=== PATIENT | male | born 1975 | race Caucasian/White ===

== ENCOUNTER 2018-12-30 21:59 | Emergency (ER) | payer OTHER ==
--- NOTE | 2018-12-30 23:02 | XR ---
EXAM: XR Chest, 2 Views CLINICAL HISTORY: ITS.REASON XR Reason: cough TECHNIQUE: Frontal and lateral views of the chest. COMPARISON: 03/01/14 x-ray FINDINGS: Lungs: No consolidation or mass. Pleural space: No effusion. Heart: No cardiomegaly. Mediastinum: Unremarkable. Bones/joints: No acute findings. IMPRESSION: No acute cardiopulmonary process.
[2018-12-30 23:07] VITALS: BP 121/76; RESP 18; TEMP 99.2
[2018-12-31] MEDS ORDERED: methylPREDNISolone SOD SUCCI 125 MG/2 ML VIAL IM ONE (00:18)
[2018-12-31] MEDS ORDERED: IPRATROPIUM-ALBUTEROL 3 ML NEB INHALATION STA (00:18)
[2018-12-31] MEDS ORDERED: PROMETHAZ-COD 6.25-10 MG/5 ML 5 ML CUP PO STA (00:18)
[2018-12-31 00:41] VITALS: PULSE 82
--- NOTE | 2018-12-31 01:13 | ED ---
URI HPI - General Chief Complaint: Upper Respiratory Infection Stated Complaint: MAX Time Seen by Provider: 12/30/18 22:50 Source: patient Mode of arrival: ambulatory Limitations: no limitations - History of Present Illness Initial Comments: 43-year-old male patient presents to the emergency department today for evaluation of cough. Patient states his been sick for the last 1-2 months with this. Patient states that he is coughing up clear to yellow sputum. Patient states that he was started on azithromycin and nasal decongestants yesterday but is not feeling any better. Patient states at times he does get short of breath. Denies any wheezing. Denies any fever or chills with this. Patient denies any history of smoking. Denies any hemoptysis. Denies any calf pain or swelling. Denies any recent long travel or history of DVT. Patient denies any recent rash, shortness breath, chest pain, abdominal pain, nausea, vomiting, diarrhea, consti pation, back pain, numbness, tingling, dizziness, weakness, hematuria, dysuria, urinary urgency, urinary frequency, headache, visual changes, or any other complaints. - Related Data Home Medications Medication Instructions Recorded Confirmed Atorvastatin Calcium [Lipitor] 40 mg PO HS 03/01/14 12/02/16 Enalapril [Vasotec] 5 mg PO BID 03/01/14 12/02/16 Warfarin [Coumadin] 5 mg PO TUTHSA 03/01/14 12/02/16 Warfarin [Coumadin] 7.5 mg PO SUMOWEFR 03/01/14 12/02/16 Zolpidem [Ambien] 10 mg PO HS 03/01/14 12/02/16 amLODIPine BESYLATE [Norvasc] 5 mg PO DAILY 03/01/14 12/02/16 Butalb/APAP/Caff 50-325-40Mg 2 tab PO Q6H PRN 04/02/16 12/02/16 [Fioricet 50-325-40] HYDROcodone/APAP 7.5-325MG [[place] 1 tab PO Q4H PRN 04/02/16 12/02/16 7.5-325] Levothyroxine Sodium [Synthroid] 25 mcg PO DAILY 04/02/16 12/02/16 Pantoprazole [Protonix] 40 mg PO HS 04/02/16 12/02/16 Previous Rx's Medication Instructions Recorded Albuterol Sulfate [Proair Hfa] 1 - 2 puff INHALATION Q6HR PRN #1 12/31/18 inhaler Promethaz-Cod 6.25-10 mg/5 ml 5 ml PO Q4HR PRN 3 Days #90 ml 12/31/18 [Phenergan with Codeine] predniSONE 50 mg PO DAILY #5 tablet 12/31/18 Allergies Allergy/AdvReac Type Severity Reaction Status Date / Time codeine AdvReac Nausea & Verified 12/30/18 22:14 Vomiting & Diarrhea metoclopramide [From Reglan] AdvReac stomach Verified 12/30/18 22:14 swelling Review of Systems ROS Statement: Those systems with pertinent positive or pertinent negative responses have been documented in the HPI. ROS Other: All systems not noted in ROS Statement are negative. Past Medical History Past Medical History: CVA/TIA, Hyperlipidemia, Hypertension Additional Past Medical History / Comment(s): CVA/TIA X 9 ,HISTORY OF LUPUS ANTICOAGULANT, PT OCCASSIONALLY LOOSES HAND FUNCTION AND GETS LT SIDED WEAKNESS R/T TO PRIOR CVA. SEVERE SCROTAL PAIN WITH N/V ; MIGRAINES, History of Any Multi-Drug Resistant Organisms: None Reported Additional Past Surgical History / Comment(s): NASAL SURGERY-SEPTOPLASTY,ABE; Colonoscopy, Past Anesthesia/Blood Transfusion Reactions: No Reported Reaction Past Psychological History: No Psychological Hx Reported Smoking Status: Never smoker Past Alcohol Use History: Rare Past Drug Use History: None Reported - Past Family History Mother Family Medical History: CVA/TIA General Exam Limitations: no limitations General appearance: alert, in no apparent distress, other (This is a well- developed, well-nourished adult male patient in no acute distress. Vital signs upon presentation are temperature 100.6F, pulse 91, respirations 19, blood pressure 136/78, pulse ox 98% on room air.) Eye exam: Present: normal appearance, PERRL, EOMI. Absent: scleral icterus, conjunctival injection, periorbital swelling ENT exam: Present: normal exam, normal oropharynx, mucous membranes moist, TM's normal bilaterally Neck exam: Present: normal inspection. Absent: tenderness, meningismus, lymphadenopathy Respiratory exam: Present: normal lung sounds bilaterally. Absent: respiratory distress, wheezes, rales, rhonchi, stridor Cardiovascular Exam: Present: regular rate, normal rhythm, normal heart sounds. Absent: systolic murmur, diastolic murmur, rubs, gallop, clicks GI/Abdominal exam: Present: soft, normal bowel sounds. Absent: distended, tenderness, guarding, rebound, rigid Neurological exam: Present: alert, oriented X3, CN II-XII intact Psychiatric exam: Present: normal affect, normal mood Skin exam: Present: warm, dry, intact, normal color. Absent: rash Course Vital Signs 12/30/18 12/30/18 12/31/18 22:10 23:07 00:29 Temperature 100.6 F H 99.2 F Pulse Rate 91 76 78 Respiratory 19 18 18 Rate Blood Pressure 136/78 121/76 O2 Sat by Pulse 98 96 Oximetry 12/31/18 00:40 Temperature Pulse Rate 82 Respiratory 18 Rate Blood Pressure O2 Sat by Pulse Oximetry Medical Decision Making - Medical Decision Making 43-year-old male patient presents to the emergency department today for evaluation of cough that his been going on for the last 4-6 weeks. Physical examination reveals clear equal lung sounds. Oxygen saturation is satisfactory. He does have a low-grade temperature 100.6. Patient is taking azithromycin [id number] nasal decongestants currently. Symptoms are consistent with acute bronchitis. We will start prednisone and given a prescription for pro- air. He will also be given cough medication to take at night. He is instructed to follow-up with his primary care physician for recheck in 1-2 days. Return parameters were discussed in detail. He verbalizes understanding and agrees with this plan. - Lab Data Lab Results 12/30/18 Range/Units 22:13 Influenza Type A RNA Not Detected (Not Detectd) Influenza Type B (PCR) Not Detected (Not Detectd) - Radiology Data Radiology results: report reviewed, image reviewed Two-view x-ray of the chest is obtained. Report was reviewed in its entirety. Impression by Dr. Ashraf shows no acute cardiopulmonary process. Disposition Clinical Impression: Acute bronchitis Disposition: HOME SELF-CARE Condition: Good Instructions (If sedation given, give patient instructions): Acute Bronchitis (ED) Additional Instructions: Take medications as directed. Continue your antibiotic. Increase fluids. Rest. Follow up with the primary care physician for recheck in 1-2 days. Return to the emergency department for any new, worsening, or concerning symptoms. Prescriptions: Promethaz-Cod 6.25-10 mg/5 ml [Phenergan with Codeine] 5 ml PO Q4HR PRN 3 Days #90 ml PRN Reason: Cough predniSONE 50 mg PO DAILY #5 tablet Albuterol Sulfate [Proair Hfa] 1 - 2 puff INHALATION Q6HR PRN #1 inhaler PRN Reason: Shortness Of Breath Is patient prescribed a controlled substance at d/c from ED?: Yes When asked, does pt state using other controlled substances?: No If prescribed controlled substance>3 days was MAPS reviewed?: Prescribed <3 Days If opioid is for acute pain is fill amount 7 days or less?: Yes If Rx opioid, was Start Talking consent form obtained?: Yes Referrals: Dwight Wood MD [Primary Care Provider] - 1-2 days Time of Disposition: 01:12
== END 2018-12-31 01:39 | disposition home or self-care (01) ==
LOC: EC 21:59
DX: J20.9 Acute bronchitis, unspecified (principal); E78.5 Hyperlipidemia, unspecified; I10 Essential (primary) hypertension; D68.62 Lupus anticoagulant syndrome; Z88.5 Allergy status to narcotic agent; Z88.8 Allergy status to other drugs, medicaments and biological substances; Z79.01 Long term (current) use of anticoagulants; Z79.890 Hormone replacement therapy; Z79.899 Other long term (current) drug therapy; Z86.73 Personal history of transient ischemic attack (TIA), and cerebral infarction without residual deficits; Z98.890 Other specified postprocedural states
CPT/HCPCS: 94640; 87502; 71046; 99285; 96372; J2930

== ENCOUNTER 2020-12-24 16:16 | Emergency (ER) | payer OTHER ==
[2020-12-24 16:24] VITALS: TEMP 98
[2020-12-24] MEDS ORDERED: SODIUM CHLORIDE 0.9% 1,000 ML IV STA (16:47)
--- NOTE | 2020-12-24 16:56 | ED ---
Chest Pain HPI - General Chief Complaint: Chest Pain Stated Complaint: Chest Pain Time Seen by Provider: 12/24/20 16:36 Source: patient, RN notes reviewed Mode of arrival: ambulatory Limitations: no limitations - History of Present Illness Initial Comments: 45-year-old well-appearing white male, alert and oriented 4, presents to the emergency room with 4 days of chest pain with intermittent heart fluttering. Patient states occasionally feels the pain and tightness down his left arm. Patient denies nausea vomiting, fever, couigh or shortness of breath. Patient denies any sick contacts. Patient has history of CVA 7 in 2006, and CVA 2 in 2008. Patient has left-sided numbness from those previous strokes but no residual weakness. Patient also has a history of lupus and migraines. Patient denies any coronary artery disease. Patient states he takes Coumadin, blood pressure medications, and Fioricet for migraine headaches that he's had since his multiple strokes. Patient has family history of cardiac disease including his mother and sister. He has seen cardiology in the past Dr. Guido, but has not seen him quite some time, primary care doctor Dr. Wood. Patient denies any focal neurologic symptoms, states he has migraines and had 8 out of 10 headache today and did take his Fioricet which improved his headache to a 4 out of 10. Patient is concerned about cardiac problem with extensive family history mother and sister. MD Complaint: chest pain -: days(s) (4) Onset: during rest, during exertion, other (Pain started after moving, lifting boxes 4 days ago states for the past 2 days it's been continual tightness in his chest) Pain Location: left chest, right chest Pain Radiation: LURosa Maria Severity scale (1-10): 4 Quality: tightness Consistency: constant Improves With: nothing Worsens With: nothing Other Symptoms: palpitations (Feels fluttering in his chest intermittently) Treatments Prior to Arrival: other (Fioricet for headache; Coumadin) - Related Data On Oral Contraceptives: No Home Medications Medication Instructions Recorded Confirmed Atorvastatin Calcium [Lipitor] 40 mg PO HS 03/01/14 12/24/20 Enalapril [Vasotec] 5 mg PO BID 03/01/14 12/24/20 Warfarin [Coumadin] 5 mg PO TUTA@2100 03/01/14 12/24/20 Zolpidem [Ambien] 10 mg PO HS PRN 03/01/14 12/24/20 amLODIPine BESYLATE [Norvasc] 5 mg PO DAILY 03/01/14 12/24/20 Butalb/APAP/Caff 50-325-40Mg 1 tab PO TID PRN 04/02/16 12/24/20 [Fioricet 50-325-40] HYDROcodone/APAP 7.5-325MG [[place] 1 tab PO QID PRN 04/02/16 12/24/20 7.5-325] Levothyroxine Sodium [Synthroid] 25 mcg PO DAILY 04/02/16 12/24/20 Pantoprazole [Protonix] 40 mg PO BID 04/02/16 12/24/20 Cetirizine HCl 10 mg PO DAILY 12/24/20 12/24/20 Fluticasone Nasal [place] [Flonase 1 - 2 spr EA NOSTRIL BID PRN 12/24/20 12/24/20 Nasal Urs[place]] Sildenafil [Revatio] 20 - 40 mg PO DAILY PRN 12/24/20 12/24/20 Warfarin [Coumadin] 7.5 mg PO SUMOWEFR@2100 12/24/20 12/24/20 Allergies Allergy/AdvReac Type Severity Reaction Status Date / Time codeine AdvReac Nausea & Verified 12/24/20 16:20 Vomiting & Diarrhea metoclopramide [From Reglan] AdvReac stomach Verified 12/24/20 16:20 swelling Review of Systems ROS Statement: Those systems with pertinent positive or pertinent negative responses have been documented in the HPI. ROS Other: All systems not noted in ROS Statement are negative. EKG Findings - EKG Results: EKG: sinus rhythm (Ventricular rate of 60, OR interval 0.16, QRS of 0.10, TC 0.414), no acute changes (03/2014), not changed from: Past Medical History Past Medical History: CVA/TIA, Hyperlipidemia, Hypertension Additional Past Medical History / Comment(s): CVA/TIA X 9 ,HISTORY OF LUPUS ANTICOAGULANT, PT OCCASSIONALLY LOOSES HAND FUNCTION AND GETS LT SIDED WEAKNESS R/T TO PRIOR CVA. SEVERE SCROTAL PAIN WITH N/V ; MIGRAINES, History of Any Multi-Drug Resistant Organisms: None Reported Additional Past Surgical History / Comment(s): NASAL SURGERY-SEPTOPLASTY,ABE; Colonoscopy, Past Anesthesia/Blood Transfusion Reactions: No Reported Reaction Past Psychological History: No Psychological Hx Reported Smoking Status: Former smoker Past Alcohol Use History: None Reported Past Drug Use History: None Reported - Past Family History Mother Family Medical History: CVA/TIA General Exam Limitations: no limitations General appearance: alert, in no apparent distress Head exam: Present: atraumatic, normocephalic, normal inspection Eye exam: Present: normal appearance, PERRL, EOMI. Absent: scleral icterus, conjunctival injection, periorbital swelling ENT exam: Present: normal exam, normal oropharynx, mucous membranes moist Neck exam: Present: normal inspection, full ROM. Absent: tenderness, meningismus, lymphadenopathy, thyromegaly Respiratory exam: Present: normal lung sounds bilaterally. Absent: respiratory distress, wheezes, rales, rhonchi, stridor, chest wall tenderness, accessory muscle use, decreased breath sounds Cardiovascular Exam: Present: regular rate, normal rhythm, normal heart sounds. Absent: systolic murmur, diastolic murmur, rubs, gallop, clicks, JVD GI/Abdominal exam: Present: soft, normal bowel sounds. Absent: distended, tenderness, guarding, rebound, rigid Extremities exam: Present: normal inspection, full ROM, normal capillary refill. Absent: tenderness, pedal edema, joint swelling, calf tenderness Back exam: Present: normal inspection, full ROM. Absent: tenderness, CVA tenderness (R), CVA tenderness (L), paraspinal tenderness, vertebral tenderness Neurological exam: Present: alert, oriented X3, CN II-XII intact Psychiatric exam: Present: normal affect, normal mood Skin exam: Present: warm, dry, intact, normal color. Absent: rash Course Vital Signs 12/24/20 12/24/20 12/24/20 16:20 16:32 18:43 Temperature 98 F Pulse Rate 69 67 Respiratory 18 16 18 Rate Blood Pressure 144/76 118/87 O2 Sat by Pulse 95 98 Oximetry - Reevaluation(s) Reevaluation #1: 12/24/20 18:33 Patient offered admission and refuses states he'll follow-up with his own primary care doctor. Family member at bedside trying to convince patient to stay , patient adamant he will follow-up with his own doctor and call Dr. Guido's office (cardiology, pt known to him) Time: 18:33 Chest Pain MDM - Core Measures AMI Core Measures Followed: No - Differential Diagnosis ACS, Pneumonia - MDM Troponin 0.012, EKG sinus rhythm, chest x-ray shows no abnormalities. MANUEL score of 1. Hemodynamically stable with heart rate of 69, blood pressure 100, oxygen saturation 95% and afebrile at 98.0. Patient states will follow-up with his own primary care doctor is refusing admission. Family member at bedside also trying to convince patient to stay, patient states he'll follow up with his own primary care doctor Dr. Wood and Dr. Guido his manager search. Patient encouraged to return to the emergency room with increasing chest pain. Patient is currently on Coumadin regimen and will continue his medications as prescribed. case discussed with Dr. Darling. - Wells Criteria Clinical Symptoms of DVT: (0) No No Alternative Diagnosis: (0) No Immobilization of Surgery in Previous 4 Weeks: (0) No Previous DVT/PE: (0) No Hemoptysis: (0) No Malignancy: (0) No - MANUEL Score Age > 65: (0) No 3 or more CAD Risk Factors: (1) Yes Known CAD with more than 50% Stenosis: (0) No Aspirin use within the Past 7 Days: (0) No Elevated Cardiac Markers: (0) No ST Deviation Greater than 0.5mm: (0) No Disposition Clinical Impression: Chest pain at rest Disposition: HOME SELF-CARE Condition: Good Instructions (If sedation given, give patient instructions): Chest Pain (ED) Additional Instructions: Follow-up with your primary care doctor and manager search tomorrow. Return to the emergency room if increasing chest pain or shortness of breath. Continue your Coumadin as previously prescribed. Is patient prescribed a controlled substance at d/c from ED?: No Referrals: Dwight Wood MD [Primary Care Provider] - 1-2 days Time of Disposition: 18:38
[2020-12-24 17:16] LABS: Basophils # (A) 0.1 k/uL (0-0.2); Basophils % (A) 1 %; Eosinophils # (A) 0.3 k/uL (0-0.7); Eosinophils % (A) 4 %; HCT 43.8 % (39.0-53.0); HGB 15.4 gm/dL (13.0-17.5); Lymphocytes # (A) 1.6 k/uL (1.0-4.8); Lymphocytes % (A) 25 %; MCH 29.7 pg (25.0-35.0); MCHC 35.2 g/dL (31.0-37.0); MCV 84.4 fL (80.0-100.0); Monocytes # (A) 0.4 k/uL (0-1.0); Monocytes % (A) 7 %; Neutrophils # (A) 3.8 k/uL (1.3-7.7); Neutrophils % (A) 61 %; Platelet Count 209 k/uL (150-450); RBC 5.19 m/uL (4.30-5.90); RDW 12.8 % (11.5-15.5); WBC 6.2 k/uL (3.8-10.6)
[2020-12-24 17:27] LABS: ALT 23 U/L (4-49); AST 25 U/L (17-59); African American GFR (CKD) >90 (>60 ml/min/1.73 sqM); Albumin 4.2 g/dL (3.5-5.0); Alkaline Phosphatase 71 U/L (38-126); Anion Gap 7 mmol/L; Blood Urea Nitrogen 13 mg/dL (9-20); Calcium 9.3 mg/dL (8.4-10.2); Carbon Dioxide 25 mmol/L (22-30); Chloride 108 mmol/L (98-107); Glucose 92 mg/dL (74-99); Non-African American GFR(CKD) >90 (>60 ml/min/1.73 sqM); Potassium 3.9 mmol/L (3.5-5.1); Sodium 140 mmol/L (137-145); Total Bilirubin 0.5 mg/dL (0.2-1.3); Total Protein 6.5 g/dL (6.3-8.2)
[2020-12-24 17:35] LABS: INR 1.1 (<1.2)
[2020-12-24 17:36] LABS: Partial Thromboplastin Time 23.5 sec (22.0-30.0); Prothrombin Time 11.4 sec (9.0-12.0)
--- NOTE | 2020-12-24 18:02 | XR ---
EXAMINATION TYPE: XR chest 2V DATE OF EXAM: 12/24/2020 COMPARISON: 12/30/2018 HISTORY: Cough TECHNIQUE: 2 views FINDINGS: Heart and mediastinum are normal. Lungs are clear. Diaphragm is normal. Bony thorax is inta ct. IMPRESSION: Normal chest. No change.
[2020-12-24 18:44] VITALS: BP 118/87; PULSE 67; RESP 18
== END 2020-12-24 18:56 | disposition home or self-care (01) ==
LOC: EC 16:16
DX: R07.89 Other chest pain (principal); E78.5 Hyperlipidemia, unspecified; I10 Essential (primary) hypertension; G43.909 Migraine, unspecified, not intractable, without status migrainosus; Z87.891 Personal history of nicotine dependence; Z86.73 Personal history of transient ischemic attack (TIA), and cerebral infarction without residual deficits; Z79.01 Long term (current) use of anticoagulants
CPT/HCPCS: 36415; 71046; 80053; 83735; 84484; 85025; 85610; 85730; 93005; 99285